=== PATIENT | male | born 1945 | race Caucasian/White ===

== ENCOUNTER 2024-12-17 09:50 | Outpatient (CLI) | payer MEDICARE, OTHER ==
[~2024-12-17 09:50] MED LIST: iohexol 350MG/ML 100ml bottle IV ONE
[2024-12-17 10:42] LABS: ALBUMIN 3.4 G/DL (3.4-5.0); ANION GAP 5 (8-16); BLOOD UREA NITROGEN 12 MG/DL (7-18); CALCIUM 8.9 MG/DL (8.5-10.1); CHLORIDE 109 MMOL/L (99-107); GLUCOSE 101 MG/DL (70-104); POTASSIUM 4.2 MMOL/L (3.5-5.1); SODIUM 141 MMOL/L (135-145); TOTAL CARBON DIOXIDE 26.7 MMOL/L (24-32); eGFR 72 ML/MIN
--- NOTE | 2024-12-18 18:08 | RADIOLOGY REPORT ---
CT CTA PRE WATCHMAN INDICATION: PAROXYSMAL ATRIAL FIBRILLATION TECHNIQUE: CT cardiac imaging for pulmonary vein analysis has been obtained. 3-D, MIP, and MPR image s obtained. All CT scans at this facility use dose modulation, iterative reconstruction, and/or weigh t based dosing when appropriate to reduce radiation dose to as low as reasonably achievable. COMPARISON: None FINDINGS: PULMONARY VEINS (PV): Conventional drainage into left atrium 2 pulmonary vein ostia on the right and 2 on the left Ostial measurements on are as follows: Right superior vein ostium: 14 mm right inferior vein ostium: 15 mm Left superior vein ostium: 12 mm Left inferior vein ostium: 9 mm PROXIMITY OF ESOPHAGUS TO PV: Esophagus lies right of midline and closely courses to the posterior aspect of the left atrium Left inferior pulmonary vein ostium is approximately 9 mm from the esophagus Left superior pulmonary vein is 10 mm away from the esophagus The right pulmonary vein ostia lie approximately 7 mm away from the esophagus. CARDIAC CHAMBERS: Normal size of ventricles and right atrium. No intracardiac thrombus. Normal left atrial appendage. No pericardial thickening or effusion. Left atrial appendage measures 18 x 18 mm in width with chic miller wing morphology. OTHER: Normal caliber of thoracic aorta and central pulmonary arteries. Coronary artery calcifications. Mil d to moderate left gynecomastia. IMPRESSION: Conventional pulmonary venous drainage into left atrium. No pulmonary vein stenosis. No intracardiac or left atrial appendage thrombus. Left atrial appendage measures 18 x 18 mm in width with chicken wing morphology.
== END 2024-12-17 23:59 | disposition home or self-care (01) ==
LOC: RAD 09:50
PROVIDERS: ATTEND Internal Medicine Cardiovascular Disease
DX: I48.0 Paroxysmal atrial fibrillation (principal)
CPT/HCPCS: 36415; 80048; Q9967

== ENCOUNTER 2025-04-16 08:58 | Outpatient (CLI) | payer MEDICARE, OTHER ==
[2025-04-16 10:01] LABS: CREATININE 1.14 MG/DL (0.60-1.10); TOTAL CARBON DIOXIDE 31.8 MMOL/L (24-32); eGFR 62 ML/MIN
--- NOTE | 2025-04-16 19:00 | RADIOLOGY REPORT ---
CT POST WATCHMAN INDICATION: PRESENCE OF OTHER CARDIAC IMPLANTS AND GRAFTS TECHNIQUE: CT cardiac imaging for post Watchman implant analysis has been obtained. 3-D, MIP, and MPR images obtained. All CT scans at this facility use dose modulation, iterative reconstruction, and/or weight based dosing when appropriate to reduce radiation dose to as low as reasonably achievable. COMPARISON: CT CTA PRE WATCHMAN on DOS: 12/17/24 STUDY QUALITY: Good FINDINGS: ATRIAL APPENDAGE: In regards to the clinical question, status post Watchman device placement. Small amount of presumed contrast material projecting within the cage of the device just behind the PET fabric cap. On delayed images, evidence of contrast filling the more distal portion of the atrial appendage with chicken wing morphology. Margins of the implant appear to be well seated along the proximal margins of the beginning of the atrial appendage. Consideration for small possible tear in the fabric. CARDIAC CHAMBERS: Normal size of ventricles and right atrium. No intracardiac thrombus. No pericardial thickening or effusion. OTHER: Small sliding hiatal hernia. bilateral gynecomastia. Diffuse suspected peribronchial thickening. IMPRESSION: Margins of the implant appear to be well seated along the proximal margins of the beginning of the atrial appendage. Consideration for small possible tear in the fabric.
== END 2025-04-16 23:59 | disposition home or self-care (01) ==
LOC: RAD 08:58
PROVIDERS: ATTEND Nurse Practitioner Family
DX: N62 Hypertrophy of breast (principal); K44.9 Diaphragmatic hernia without obstruction or gangrene; Z95.818 Presence of other cardiac implants and grafts
CPT/HCPCS: 36415; 71275; 75572; 80048; Q9967